=== PATIENT | female | born 1965 | race Caucasian/White ===

== ENCOUNTER 2016-06-16 09:04 | Emergency (ER) | payer OTHER ==
[2016-06-16 09:31] LABS: URINE BILIRUBIN NEGATIVE (NEGATIVE); URINE BLOOD 3+ (NEGATIVE); URINE GLUCOSE (UA) 2+ (NEGATIVE); URINE LEUKOCYTE ESTERASE NEGATIVE (NEGATIVE); URINE NITRITE NEGATIVE (NEGATIVE); URINE PROTEIN TRACE (NEGATIVE); URINE UROBILINOGEN NORMAL (0-1 mg/dl)
[2016-06-16 09:32] LABS: HCG,QUALITATIVE URINE NEGATIVE; URINE APPEARANCE CLEAR; URINE COLOR YELLOW
[2016-06-16 09:37] LABS: URINE WBC 0-1 /hpf
[2016-06-16 09:39] LABS: URINE BACTERIA RARE
[2016-06-16] MEDS ORDERED: ONDANSETRON 4 MG/2ML 2 ML VIAL ONE (10:10)
[2016-06-16] MEDS ORDERED: LACTATED RINGERS 1,000 ML ONE (10:10)
[2016-06-16] MEDS ORDERED: HYDROMORPHONE HCL 0.5 MG/0.5 ML SYRINGE ONE (10:10)
[2016-06-16 10:17] LABS: ABSOLUTE NEUTROPHIL COUNT 8.1 K/mm3 (1.8-7.7); BASO % 0.3 % (0.2-1.0); EOS % 0.1 % (0.9-2.9); HEMATOCRIT 44.2 % (37.0-47.0); HEMOGLOBIN 14.7 gm/l (12.0-16.0); IMM NEUT% 0.2 % (0-1); LYMPH # 1.7 (1.0-4.8); LYMPH % 16.7 % (15-45); MEAN CELL VOLUME 89.5 fl (81.0-99.0); MEAN CORPUSCULAR HEMOGLOBIN 29.8 pg (27.0-31.0); MEAN CORPUSCULAR HGB CONC 33.3 g/dl (33.0-37.0); MEAN PLATELET VOLUME 10.5 fl (7.4-10.4); MONO # 0.5 (0.0-0.8); MONO % 4.8 % (4-12); NEUT % 77.9 % (43-75); PLATELET COUNT 335 K/mm3 (130-400); RED CELL DISTRIBUTION WIDTH 12.9 % (11.5-14.5)
[2016-06-16 10:47] LABS: CALCIUM 9.4 mg/dL (8.6-10.3)
--- NOTE | 2016-06-16 10:53 | CT ---
Exam Type: ABD/PELVIS W/O CON Date and Time: 06/16/2016 10:01 AM Clinical information: Left flank pain. Comparison: None Procedure: Imaging device: [employer] [address] scanner 1 mm axial images were obtained through the abdomen and pelvis. Stacked reconstructed 3, 4 and 5 mm images were photographed in the axial coronal and sagittal planes. No oral contrast was utilized for this examination. Exam: Without intravenous contrast. FINDINGS: Lung bases:The visualized lung bases appear to be appropriate with no mass, effusion or consolidation visualized. Liver: the liver is homogeneous with no discrete abnormality visualized. No definite findings of biliary dilatation are observed. Spleen: The spleen is homogeneous and does not appear to be enlarged. Gallbladder: Normal without enlargement or evidence of adjacent inflammatory changes. Pancreas: Normal without enlargement or evidence of adjacent inflammatory changes. Adrenal glands: Normal without enlargement or evidence of adjacent inflammatory changes. Abdominal aorta: The aorta is of normal caliber and appears to be without significant atherosclerotic disease. Kidneys: Kidneys appear to be of asymmetric size with the left kidney appearing larger than the right. There is mild to moderate left-sided hydronephrosis observed with prominence of the left ureter. There is a calculus identified within the distal left ureter at the ureterovesicular junction measuring 4.1 x 3.4 mm in size. Bowel structures: The visualized bowel is of normal caliber without evidence of dilatation or obstruction. No free fluid or mesenteric inflammatory changes are identified. Appendix: The appendix is well-visualized and appears to be of normal caliber. No periappendiceal inflammatory changes or CT findings of appendicitis are currently observed. Bladder: The bladder is of normal contour. No wall thickening or significant distention is observed. Hernia: No abdominal wall or inguinal hernia is visualized on this examination. Adenopathy: No significant enlarged adenopathy is visualized. Osseous structures: Lumbar degenerative changes are present at L5-S1. Pelvic structures: No discrete pelvic abnormalities are visualized in this examination. IMPRESSION: 1. A 4 mm distal left-sided intraureteral calculus located at the ureterovesicular junction with mild to moderate associated left-sided hydronephrosis. 2. A normal appearance of the appendix without CT evidence of appendicitis. 3. Lumbar degenerative changes at L5-S1.
[2016-06-16] MEDS ORDERED: KETOROLAC TROMETHAMINE 15 MG/ML VIAL ONE (11:11)
== END 2016-06-16 11:34 | disposition home or self-care (01) ==
LOC: ED 09:04
DX: N20.1 Calculus of ureter (principal); R11.2 Nausea with vomiting, unspecified; E11.9 Type 2 diabetes mellitus without complications; Z79.84 Long term (current) use of oral hypoglycemic drugs
CPT/HCPCS: 81025; 85025; 80048; 81001; 74176; 96375 ×2; 99283 ×2; 96374; 96361; J1885; J2405; J7120; J1170